=== PATIENT | male | born 1980 | race Caucasian/White ===

== ENCOUNTER 2016-11-14 09:33 | Emergency (ER) | payer OTHER ==
[~2016-11-14] VITALS: Ht 190.5 cm; Wt 95.3 kg
--- OUTSIDE RECORDS SUMMARY | 2016-11-14 09:42 | External Medical Summary Rpt ---
Demographics Preferred Language [place] Marital Status Unknown Tenriism Affiliation Unknown Race Unknown Ethnic Group Unknown Author Author , Organization [employer] Address Unknown Phone Unavailable Purpose Continuity of Care Document - through 2016 Immunization No patient found.
--- OUTSIDE RECORDS SUMMARY | 2016-11-14 09:42 | External Medical Summary Rpt ---
Author Author [facility] Organization [employer] Address Unknown Phone Unavailable Purpose Continuity of Care Document - through 2016
--- OUTSIDE RECORDS SUMMARY | 2016-11-14 09:42 | External Medical Summary Rpt ---
Author Author , Organization [facility] Address Unknown Phone Unavailable Purpose Continuity of Care Document - 02-04-2014 through 2016 Results Labs Lab Lab Date Result Refere Interp Status Commen Order Detail nces retati t Range on ALCOHOL,SERUM (02-04-2014 08:45) Alcohol <10 0-10 Normal complet 014 mg/dL ed 08:45 Comment: ETOH IS BELOW ASSAY RANGE DRUGS OF ABUSE SCREEN (7 TEST) (02-04-2014 08:40) Opiates NEG. NEGATIV Normal complet 014 E,NEG. ed 08:40 Comment: DRUG SCREEN CUTOFF LEVELS: Comment: PCP\E\.sk5\E\\E\.sk5\ E\- 25 ng/ml Comment: BENZO \E\.sk5\E\-\E\.sk5\E\ 200 ng/ml Comment: MITUL\E\.sk5\E\\E\.sk5\ E\-\E\.sk5\E\300 ng/ml Comment: AMP\E\.sk5\E\\E\.sk5\ E\-\E\.sk5\E\1000 ng/ml Comment: THC\E\.sk5\E\\E\.sk5\ E\-\E\.sk5\E\50 ng/ml Comment: OPI\E\.sk5\E\\E\.sk5\ E\-\E\.sk5\E\300 ng/ml Comment: MUSTAPHA - 200 ng/ml Comment: METDON \E\.sk5\E\-\E\.sk5\E\ 300 ng/ml Comment: PROPOXY - 300 ng/ml Comment: METHAQ - 300 ng/ml Benzodi NEG. NEGATIV Normal complet azepine 014 E,NEG. ed 08:40 Cocaine NEG. NEGATIV Normal complet 014 E,NEG. ed 08:40 Barbitu NEG. NEGATIV Normal complet rates 014 E,NEG. ed 08:40 Phencyc NEG. NEGATIV Normal complet lidine 014 E,NEG. ed (PCP) 08:40 Ampheta NEG. NEGATIV Normal complet min/Met 014 E,NEG. ed hamp 08:40 THC NEG. NEGATIV Normal complet 014 E,NEG. ed 08:40
--- OUTSIDE RECORDS SUMMARY | 2016-11-14 09:42 | External Medical Summary Rpt ---
Demographics Preferred Language Citizen Of [place] Marital Status Unknown Christianity Affiliation Unknown Race Unknown Ethnic Group Unknown Author Author , Organization [employer] Address Unknown Phone Unavailable Purpose Continuity of Care Document - through 2016 Immunization No patient found.
--- NOTE | 2016-11-14 10:09 | Emergency Room Report ---
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 N Clinical Suspician of Infection? N Mental Status: 1 - Regular (Normal Baseline) Sepsis Risk:Low Sepsis Risk Have you (or family members/close friends) recently traveled outside the [place]? N If Yes, where/when: Have you had exposure to infectious disease within the past month? N TB? Other? Specify: Source patient, RN notes reviewed, family, RN/MD Exam Limitations no limitations Comment This is a 36-year-old occasion gentleman arriving to the emergency room with right eye pain and foreign body sensation since 5 PM yesterday, after sustaining an eye injury, while sawing wood with a circular saw, without protective goggles. Patient believes that some of the wooden dust, possibly somewhat imparted a got into his right eye, so, he tried to flush his right eye out with water, while rubbing his eye. ALLERGIES Coded Allergies: No Known Allergies (11/14/16) History Medical History General CAD? No Angina: No AR: No Hypertension? No Hyperlipidemia? No CHF? No DVT? No PE? No COPD? No Asthma? No Anemia? No GERD? No Gastric ulcers? No GI Bleed? No Hernia? No Thyroid Problems? No Hypothyroidism? No CVA? No Seizures? No Diabetes? No Renal Insuffiency? No End Stage Renal Disease? No UTI? No Stones? No BPH? No GB Disease: No Nephritic Syndrome? No Asplenia? No Hepatitis? No Sickle Cell Disease? No Arthritis? No Migraines? No Cataracts? No Glaucoma? No MRSA? No HIV? No TB? No Anxiety? No Depression? No Cancer? No More? No Immunization Hx DT/Tetanus Unknown Surgical Hx Previous Surgery?N Social History Smoking Hx Smoker: Never Smoker Tobacco: No Alcohol Alcohol: No Review of Systems All Other Systems Reviewed and Negative Eyes see HPI Physical Exam Vital Signs Vital Signs Date Time Temp Pulse Resp B/P Pulse O2 O2 Flow FiO2 Ox Delivery Rate 0515 1022 98.2 67 20 129/87 100 11/14 0948 98.2 67 20 129/87 100 General Appearance normal appearance, WD/WN, no apparent distress Eye Exam - right eye eyelid inflammation, right eye corneal abrasion, left eye normal exam, bilateral eye PERRL, bilateral eye EOMI, bilateral eye other (normal fundi ) Neck normal inspection, non-tender, supple, full range of motion Respiratory Status Yes: trachea midline, chest symmetrical, non tender chest. No: respiratory distress. Lung Sounds bilateral: normal breath sounds, lungs clear. 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 No Comment 09:55-evaluation of right eye is limited by the absence of the slit lamp in this emergency room. The Vasquez lamp evaluation reveals a scratch at 12:00, likely secondary to the wooden dust/fragments present into this patient's RIGHT eye. Given the patient's limited exam I feel it seeing his best interest to be seen by an patient services manager who can perform a slit-lamp exam as well. 10:00-case discussed with Channing Everett, advised patient's condition, agreeable to see patient immediately upon discharge from the emergency room. I did not apply any antibiotics in the patient's right eye since patient is going straight to the patient services manager office where he'll have a slit-lamp exam. Results/Orders Current Medication Orders Sig/Pepe Start time Last Medication Dose Route Stop Time Status Admin Miscellaneous 0 .STK-MED ONE 11/14 0951 DC XX Procedures Eye Procedure Eye Procedure Risks/benefits discussed with pt/guardian? Yes Tetracaine Drops Administered right eye Fluorescein Stick(s) Used right eye Slit lamp exam No (NOT available at this ER) Eye Irrigated w/ Saline (ccs) 15 Antibiotic Ointment/Drps Admin right eye (deferred to Dr Salter) Departure Departure Time of Disposition 1007 Disposition DC Home or Self Care(routine) Clinical Impression Primary Impression: Corneal abrasion, right Qualifiers: Encounter type: initial encounter Qualified Code: S05.01XA - Injury of conjunctiva and corneal abrasion without foreign body, right eye, initial encounter Condition STABLE Referrals [facility]: Today after leaving ER Patient Instructions DI for Corneal Abrasion Additional Instructions Please go to [facility] (as arranged), upon discharge from this emergency room, for additional evaluation. Discharge Counseling Counseled pt/family regarding diagnosis, test results, medications/RX, home care, follow up needs Comment Please go to [facility] (as arranged), upon discharge from this emergency room, for additional evaluation. ED Critical Care Critical Care No at [id number]
--- NOTE | 2016-11-14 10:09 | Emergency Room Report ---
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 N Clinical Suspician of Infection? N Mental Status: 1 - Regular (Normal Baseline) Sepsis Risk:Low Sepsis Risk Have you (or family members/close friends) recently traveled outside the [place]? N If Yes, where/when: Have you had exposure to infectious disease within the past month? N TB? Other? Specify: Source patient, RN notes reviewed, family, RN/MD Exam Limitations no limitations Comment This is a 36-year-old occasion gentleman arriving to the emergency room with right eye pain and foreign body sensation since 5 PM yesterday, after sustaining an eye injury, while sawing wood with a circular saw, without protective goggles. Patient believes that some of the wooden dust, possibly somewhat imparted a got into his right eye, so, he tried to flush his right eye out with water, while rubbing his eye. ALLERGIES Coded Allergies: No Known Allergies (11/14/16) History Medical History General CAD? No Angina: No GA: No Hypertension? No Hyperlipidemia? No CHF? No DVT? No PE? No COPD? No Asthma? No Anemia? No GERD? No Gastric ulcers? No GI Bleed? No Hernia? No Thyroid Problems? No Hypothyroidism? No CVA? No Seizures? No Diabetes? No Renal Insuffiency? No End Stage Renal Disease? No UTI? No Stones? No BPH? No GB Disease: No Nephritic Syndrome? No Asplenia? No Hepatitis? No Sickle Cell Disease? No Arthritis? No Migraines? No Cataracts? No Glaucoma? No MRSA? No HIV? No TB? No Anxiety? No Depression? No Cancer? No More? No Immunization Hx DT/Tetanus Unknown Surgical Hx Previous Surgery?N Social History Smoking Hx Smoker: Never Smoker Tobacco: No Alcohol Alcohol: No Review of Systems All Other Systems Reviewed and Negative Eyes see HPI Physical Exam Vital Signs Vital Signs Date Time Temp Pulse Resp B/P Pulse O2 O2 Flow FiO2 Ox Delivery Rate 0515 1022 98.2 67 20 129/87 100 11/14 0948 98.2 67 20 129/87 100 General Appearance normal appearance, WD/WN, no apparent distress Eye Exam - right eye eyelid inflammation, right eye corneal abrasion, left eye normal exam, bilateral eye PERRL, bilateral eye EOMI, bilateral eye other (normal fundi ) Neck normal inspection, non-tender, supple, full range of motion Respiratory Status Yes: trachea midline, chest symmetrical, non tender chest. No: respiratory distress. Lung Sounds bilateral: normal breath sounds, lungs clear. 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 No Comment 09:55-evaluation of right eye is limited by the absence of the slit lamp in this emergency room. The Vasquez lamp evaluation reveals a scratch at 12:00, likely secondary to the wooden dust/fragments present into this patient's RIGHT eye. Given the patient's limited exam I feel it seeing his best interest to be seen by an veterinary practice manager who can perform a slit-lamp exam as well. 10:00-case discussed with Channing Everett, advised patient's condition, agreeable to see patient immediately upon discharge from the emergency room. I did not apply any antibiotics in the patient's right eye since patient is going straight to the veterinary practice manager office where he'll have a slit-lamp exam. Results/Orders Current Medication Orders Sig/Pepe Start time Last Medication Dose Route Stop Time Status Admin Miscellaneous 0 .STK-MED ONE 11/14 0951 DC XX Procedures Eye Procedure Eye Procedure Risks/benefits discussed with pt/guardian? Yes Tetracaine Drops Administered right eye Fluorescein Stick(s) Used right eye Slit lamp exam No (NOT available at this ER) Eye Irrigated w/ Saline (ccs) 15 Antibiotic Ointment/Drps Admin right eye (deferred to Dr Salter) Departure Departure Time of Disposition 1007 Disposition DC Home or Self Care(routine) Clinical Impression Primary Impression: Corneal abrasion, right Qualifiers: Encounter type: initial encounter Qualified Code: S05.01XA - Injury of conjunctiva and corneal abrasion without foreign body, right eye, initial encounter Condition STABLE Referrals [facility]: Today after leaving ER Patient Instructions DI for Corneal Abrasion Additional Instructions Please go to [facility] (as arranged), upon discharge from this emergency room, for additional evaluation. Discharge Counseling Counseled pt/family regarding diagnosis, test results, medications/RX, home care, follow up needs Comment Please go to [facility] (as arranged), upon discharge from this emergency room, for additional evaluation. ED Critical Care Critical Care No at [id number]
[2016-11-14 10:22] VITALS: BP 129/87
== END 2016-11-14 10:23 | disposition home or self-care (01) ==
LOC: UTC 09:33 → ER 09:40
DX: S05.01XA Injury of conjunctiva and corneal abrasion without foreign body, right eye, initial encounter (principal)